=== PATIENT | male | born 1960 | race Caucasian/White ===

== ENCOUNTER 2021-08-27 10:32 | Outpatient (CLI) | payer OTHER, SELFPAY ==
[2021-08-27 10:54] LABS: Basophils Percent Auto 0.3 % (0.2-1.2); Eosinophils Absolute Auto 0.2 K/mm3 (0-0.3); Eosinophils Percent Auto 3.8 % (0-4.4); Hematocrit 49.8 % (42.0-52.0); Hemoglobin 16.1 g/dL (14.0-18.0); Immature Granulocyte Absolute 0.01 K/mm3 (0.00-0.031); Immature Granulocyte Percent A 0.2 % (0-0.5); Lymphocytes Absolute Auto 1.93 K/mm3 (0.9-3.2); Lymphocytes Percent Auto 33.3 % (18.3-44.2); Mean Corpuscular HGB Conc 32.3 g/dl (32-36); Mean Corpuscular Hemoglobin 30.3 pg (26-34); Mean Corpuscular Volume 93.6 fl (80-100); Mean Platelet Volume 9.1 fl (7.4-10.4); Monocytes Absolute Auto 0.7 K/mm3 (0.1-0.6); Monocytes Percent Auto 12.3 % (2.6-8.5); Neutrophils Absolute Auto 2.9 K/mm3 (1.3-6.7); Neutrophils Percent Auto 50.1 % (45.5-73.1); Platelet Count Result 201 k/mm3 (150-375); Red Blood Count 5.32 M/mm3 (4.6-6.20); Red Cell Distribution Width 13.9 % (11.5-14.5); White Blood Count 5.8 K/mm3 (4.5-10.0)
--- NOTE | 2021-08-27 10:55 | ECG_ITS ---
Measurements Intervals Vera Rate: 58 P: 66 GA: 213 QRS: 96 QRSD: 102 T: 40 QT: 376 QTc: 369 Interpretive Statements SINUS BRADYCARDIA WITH SINUS ARRHYTHMIA WITH FIRST DEGREE AV BLOCK RIGHT AXIS DEVIATION INCOMPLETE RIGHT BUNDLE BRANCH BLOCK ABNORMAL ECG Electronically Signed On 08-27-2021 11:35:30 CDT by Devin Castillo D.O.
[2021-08-27 11:05] LABS: Alanine Aminotransferase 32 U/L (6-50); Albumin Level 4.4 g/dL (3.5-5.1); Alkaline Phosphatase 69 U/L (38-126); Anion Gap 7 mmol/L (8-16); Aspartate Amino Transferase 44 U/L (17-59); Bilirubin,Total 0.9 mg/dL (0.2-1.3); Blood Urea Nitrogen 18 mg/dL (9-20); Calcium 8.8 mg/dL (8.4-10.2); Carbon Dioxide 27 mmol/L (22-30); Chloride 107 mmol/L (98-107); Estimated Glomerular Filt Rate > 60; Glucose 103 mg/dL (65-110); Potassium 4.8 mmol/L (3.4-5.0); Sodium 141 mmol/L (137-145)
== END 2021-08-27 10:33 | disposition home or self-care (01) ==
PROVIDERS: PCP Family Medicine; Visit Provider Surgery
DX: K40.90 Unilateral inguinal hernia, without obstruction or gangrene, not specified as recurrent (principal); I45.10 Unspecified right bundle-branch block; I44.0 Atrioventricular block, first degree
CPT/HCPCS: 36415; 80053; 85025; 93005

== ENCOUNTER 2021-09-06 12:59 | Outpatient (CLI) | payer OTHER, SELFPAY | END 2021-09-06 13:00 | disposition home or self-care (01) | LOC: ANHSURGERY 13:03 | PROVIDERS: PCP Family Medicine; Visit Provider Surgery | DX: K40.90 Unilateral inguinal hernia, without obstruction or gangrene, not specified as recurrent (principal) | CPT/HCPCS: 36415; 86850; 86900; 86901 ==

== ENCOUNTER 2021-09-09 01:22 | Day surgery (SDC) | payer OTHER, SELFPAY ==
[2021-09-05 12:42] VITALS: BMI 28.5
--- NOTE | 2021-09-05 12:53 | PC.NURSE ---
Report to the Outpatient Waiting Room, entrance under the green pavilion located off [facility], at time 6:00 on date 09/09/21. OR Time: 7:30. - You and your visitor will be asked a series of questions to screen for COVID 19 for your protection. - Only one visitor is allowed at this time. - The patient visitor is requested to leave or wait in car when not with patient. - A mask is required within the hospital. Patients may have clear liquids (water, carbonated beverages, clear teas, apple juice) until 3 hours prior to surgery (4:30) with a maximum of 20 ounces. - No food from midnight until time of surgery Take the following medications with a SIP of water the morning of surgery: NONE Medications to discontinue per physician: VITAMINS/SUPPLEMENTS Date to take last dose: 09/05/21 Please no make-up, nail maltese, hairspray, perfume, deodorant, or body powder the day of surgery. No jewelry (including any body piercings) or valuables the day of surgery, leave them at home. Please take a shower or bath the night before, or the morning of, surgery with an antibacterial soap. Wear comfortable, loose fitting clothing. HIBICLENS SHOWER - Jewelry must be removed prior to entering the operating room. Rings and piercings that are not removed may be cut off. - The hospital will not accept responsibility for valuables. - Please leave all valuables, including medications, at home the day of surgery. If you are going home after surgery, a licensed special events driver must drive you home. - NO public transportation without another adult. - We recommend that an adult stay with you for 24 hours following discharge. - We also recommend that you do not drive, make important decision, drink alcoholic beverages, or take any drugs that were not prescribed by your health care provider for at least 24 hours after your discharge time. Follow any additional instructions given to you from your surgeon. If you or anyone in your household have experienced Covid symptoms in the past week, please notify your surgeon or the nurse liaison at the phone number below for possible testing. Telephone instructions given to PT - RICKY CALVO and asked if any additional questions and then verbalized understanding. Patient advised to call surgeon office or pre surgery nurse liaison [phone] if any additional questions.
[2021-09-09] VITALS (13 sets, daily range): BP systolic 114–136; BP diastolic 78–87; PULSE 62–90; RESP 12–16; TEMP 36.4–36.8; O2SAT 96–100
[2021-09-09] MEDS: ACETAMINOPHEN 500 MG TABLET 1000 MG PO (06:35)
[2021-09-09] MEDS: LACTATED RINGERS 1,000 ML 30 ML IV CONT (06:50)
[2021-09-09] MEDS: KETOROLAC 15 MG/ML VIAL (*BKC) IV PUSH (06:51)
--- NOTE | 2021-09-09 06:56 | P.PNAN_ITS ---
Anes - Initial Pre Proc Eval Procedure: Operation Date: 09/09/21 07:30 Proposed Procedures p Laparoscopic Right Inguinal Hernia Repair with Mesh, Possible Open - Roger Finnegan MD Date/Time: 09/09/21 06:56 Surgeon: Roger Finnegan MD Pre Op Diagnosis: right inguinal hernia Patient Data Age: 61 Gender: M Height: 1.83 m Weight: 94.7 kg Allergies Allergy/AdvReac Type Severity Reaction Status Date / Time No Known Drug Allergies Allergy Unknown unknown Verified 09/09/21 06:23 Home Medications Medication Instructions Recorded Confirmed Type albuterol sulfate 90 mcg/actuation 1 inhalation inhalation Q4H PRN 04/07/19 09/05/21 Rx aerosol inhaler (ProAir HFA) shortness of breath or wheezing #8.5 grams bxrelmpi-yaspswdb-zzwkn acid 400 1 tablet PO DAILY 06/26/21 09/09/21 History mcg-vit K 20 mcg-lycop 300 mcg tablet (One-A-Day Men's Multivitamin) lansoprazole 15 mg capsule,delayed 15 mg PO WEEKLY 07/10/21 09/09/21 History release (Prevacid 24Hr) melatonin 10 mg capsule 10 mg PO QHS 07/10/21 09/09/21 History omega-3 fatty acids-fish oil 360 1 cap PO BID 07/10/21 09/09/21 History mg-1,200 mg capsule (Fish Oil) ezetimibe 10 mg tablet See Rx Instructions .Route 08/20/21 09/09/21 Rx .COMPLEX #90 tabs budesonide-formoterol HFA 160 2 puff inhalation HS 09/05/21 09/09/21 History mcg-4.5 mcg/actuation aerosol inhaler (Symbicort) Patient hx anesthesia problems: none Family hx anesthesia problems: none Results Review: All pre-operative results and documents have been reviewed as part of the pre- operative evaluation. [facility] Past Medical History Medical History Asthma Mixed hyperlipidemia Surgical History Surgical History H/O arthroscopy H/O colonoscopy History of esophagogastroduodenoscopy (EGD) Family History Family History Mother Diabetes mellitus Father Family history of malignant neoplasm, Onset Age: 51 Grandparent Family history of coronary artery disease Social History Social History Smoking status: Never smoker Second hand tobacco smoke exposure: No Alcohol intake: current Alcohol use details: VERY RARE Substance use: never Substance use type: does not use Living arrangements: with family 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 Informed Consent: The patient's anesthetic plan and its attendant risks and benefits were discussed with the patient/family/POA. Questions were solicited and answers provided to the satisfaction of the patient/family/POA.
--- NOTE | 2021-09-09 07:19 | WPDHPUPDATE1 ---
History and Physical Update Update Date/Time: 09/09/21 07:19 History and Physical has been reviewed, including an updated exam of the patient. There are NO changes in the patient's condition. Risks, benefits, and alternatives have been discussed and questions answered. Patient agrees to proceed with procedure.
[2021-09-09] MEDS: ceFAZolin 2 GM/D5W 50 ML 2 GM/50 ML BAG IVPB (07:25)
[2021-09-09] MEDS: LIDO 1%/EPINEPHRINE/PF 1:200,000 30 ML VIAL INFILTRATE (08:08)
--- NOTE | 2021-09-09 08:58 | W.PM.PROC2 ---
Procedure Note - Detailed Date of Procedure 09/09/21 Pre-op Diagnosis right inguinal hernia Post-op Diagnosis Other (Right direct inguinal hernia) Procedure Performed 1. 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 See office H and P for further information. Findings There was a fairly large right direct pseudo sac and direct inguinal hernia. No indirect inguinal hernia identified. Description of Procedure After appropriate marking of the operative site prior to surgery, the patient was taken to the operating room. After induction of adequate general endotracheal anesthesia by [place] staff, the patient was carefully prepped and draped in a sterile fashion. A timeout was performed confirming the procedure and site of surgery on the right. Following this, local anesthetic was infiltrated into the umbilical area and a vertical incision was made just below the umbilicus. I carefully dissected down to the the anterior rectus sheath on the right and then made a 1 cm vertical slit in the fascia just off the midline. The rectus muscle was retracted to right and then just in front of the posterior rectus sheath, a dissecting balloon was passed onto the pubic bone. After placing slight pressure on the left groin area, this was insufflated with 30 pumps, while watching with the 0 degree laparoscope. It appeared that I was in the proper plane. Following this, the dissecting balloon was removed and replaced by a Chávez cannula with a circular 20 cc conforming balloon. Following this, the 0 degree laparoscope was used to carefully place two 5mm [employer] slim trocars, just to the left of midline. One suprapubic and other one longterm between the umbilicus and the pubic bone. Tedious dissection then occurred in the preperitoneal space exposing the Porter's ligament, the cord structures, the muscular tissue anteriorly, and the retroperitoneum. This was then able to be dissected back and we could visualize the posterior peritoneum. I then dissected up to the level of the umbilicus and it was ready for mesh placement. After carefully confirming all sites and that the mesh would cover the direct space, I carefully rolled the Large Mid 3D Bard mesh and slid this through the 12 mm trocar at the umbilical level down into the preperitoneal space. This unfurled nicely and sat nicely against the right groin structures. It nicely covered all spaces and it went back nicely into the preperitoneal space along the anterior-superior iliac spine. I took a picture of it carefully, which showed that the mesh will cover the preperitoneal groin well, and had come down to the posterior border of the peritoneum. Once this was accomplished, I took the patient out of Trendelenburg position, rotated the patient back even, and then observed using a dissector through the higher 5 mm trocar to keep the mesh pushed down against the anterior and posterior abdominal wall retroperitoneally. The peritoneum was then allowed to fall on to the mesh and it held the mesh nicely in place. I then carefully removed each of the 5 mm trocars under direct vision and compressed the CO2 gas out of the preperitoneal space, deflating the 30 cc round balloon and removing the Junie cannula. I was happy with the way the peritoneum laid back on the mesh. I felt this will give the patient a good preperitoneal repair. Following this an O Vicryl figure of eight suture was used to close the anterior rectus sheath on the right side of the umbilical incision and then local anesthetic was infiltrated into each of the incisions. Each 5mm site was closed with 4-0 undyed Monocryl and a running subcuticular closure of 4-0 undyed Monocryl was used on the skin of umbilicus. Surgical glue was used for dressing. Following this, the patient was taken to the
[2021-09-09] MEDS: oxyCODONE HCL (*CRX) 5 MG TAB IR PO (09:52)
== END 2021-09-09 12:05 | disposition home or self-care (01) ==
PROVIDERS: PCP Family Medicine; Visit Provider Surgery
PROC: (CPT 49650; principal; 2021-09-09 07:30)
DX: K40.90 Unilateral inguinal hernia, without obstruction or gangrene, not specified as recurrent (principal); J45.909 Unspecified asthma, uncomplicated; E78.2 Mixed hyperlipidemia; Z79.51 Long term (current) use of inhaled steroids
CPT/HCPCS: 49650; A9270; C1781; J0330; J0690; J1100; J1170; J1885; J2250; J2370; J2704; J2710; J7030; J7120

== ENCOUNTER 2021-12-23 01:03 | Day surgery (SDC) | payer OTHER, SELFPAY ==
[2021-12-05 15:33] VITALS: BMI 28.8
[2021-12-23 11:30] VITALS: BMI 28.0
--- NOTE | 2021-12-23 11:31 | PM.IMHP ---
H&P: HPI History of Present Illness Date/Time: 12/23/21 11:31 Chief Complaint: History of colon polyp. Narrative: This is a 61-year-old white male patient presents for screening colonoscopy. Patient's current weight appetite and bowel movements are normal. Patient denies abdominal pain. he has had no bleeding patient has a prior history of adenomatous colon polyp 2016. Patient presents today for follow-up screening colonoscopy. Review of Systems Review of Systems: Review of systems noncontributory. [facility] Past Medical History Medical History Asthma Mixed hyperlipidemia Surgical History Surgical History H/O arthroscopy H/O colonoscopy H/O inguinal hernia repair Laparoscopic right inguinal hernia repair w/ mesh, possible open on 09/09/21 History of esophagogastroduodenoscopy (EGD) Family History Family History Mother Diabetes mellitus Father Family history of malignant neoplasm, Onset Age: 51 Grandparent Family history of coronary artery disease Social History Social History Smoking status: Never smoker Second hand tobacco smoke exposure: No Alcohol intake: current Alcohol use details: Rarely Substance use: never Substance use type: does not use Living arrangements: with family 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 Spiritual care concerns: No Meds Home Medications and Allergies Home Medications Medication Instructions Recorded Confirmed Type albuterol sulfate 90 mcg/actuation 1 inhalation inhalation Q4H PRN 04/07/19 12/23/21 Rx aerosol inhaler (ProAir HFA) shortness of breath or wheezing #8.5 grams qektrpzb-byspbnem-oxfjm acid 400 1 tablet PO DAILY 06/26/21 12/23/21 History mcg-vit K 20 mcg-lycop 300 mcg tablet (One-A-Day Men's Multivitamin) lansoprazole 15 mg capsule,delayed 15 mg PO WEEKLY 07/10/21 12/23/21 History release (Prevacid 24Hr) melatonin 10 mg capsule 10 mg PO QHS PRN Insomnia 07/10/21 12/23/21 History omega-3 fatty acids-fish oil 360 2 cap PO DAILY 07/10/21 12/23/21 History mg-1,200 mg capsule (Fish Oil) ezetimibe 10 mg tablet See Rx Instructions .Route 08/20/21 12/23/21 Rx .COMPLEX #90 tabs budesonide-formoterol HFA 160 1 puff inhalation HS 09/05/21 12/23/21 History mcg-4.5 mcg/actuation aerosol inhaler (Symbicort) Allergies Allergy/AdvReac Type Severity Reaction Status Date / Time No Known Drug Allergies Allergy Unknown unknown Verified 12/23/21 11:28 Exam Narrative: Physical exam reveals patient to be alert. Vital signs stable. HEENT exam is unremarkable. Patient is anicteric. Lungs are clear to auscultation and percussion. Heart is without murmur or extra sounds. Abdomen bowel sounds present soft nontender with no organomegaly. Digital external rectal exam is normal. Assessment and Plan Assessment and plan (1) History of colon polyps: Code(s): Z86.010 - Personal history of colonic polyps Status: Acute Assessment and Plan: Patient has a history of adenomatous colon polyp removed from the colon 2016. Plan is for surveillance colonoscopy now consider this at intervals in the future.
[2021-12-23 11:33] VITALS: BP 133/82; PULSE 84; RESP 18; TEMP 36.7; O2SAT 100
[2021-12-23] MEDS: LACTATED RINGERS 1,000 ML 150 ML IV CONT (11:44)
--- NOTE | 2021-12-23 11:47 | WPDANESEPPF ---
Anes - Initial Pre Proc Eval Procedure: Operation Date: 12/23/21 12:30 Proposed Procedures p Screening Colonoscopy - Brett Beard MD Date/Time: 12/23/21 11:47 Surgeon: Brtet Beard MD Pre Op Diagnosis: hx colon polyps, neoplasm screening Patient Data Age: 61 Gender: M Height: 1.83 m Weight: 93.6 kg Last Vital Signs Temp 98.0 F 12/23/21 11:33 Pulse 84 12/23/21 11:33 Resp 18 12/23/21 11:33 BP 133/82 12/23/21 11:33 Pulse Ox 100 12/23/21 11:33 O2 Del Method Room Air 12/23/21 11:33 Allergies Allergy/AdvReac Type Severity Reaction Status Date / Time No Known Drug Allergies Allergy Unknown unknown Verified 12/23/21 11:28 Home Medications Medication Instructions Recorded Confirmed Type albuterol sulfate 90 mcg/actuation 1 inhalation inhalation Q4H PRN 04/07/19 12/23/21 Rx aerosol inhaler (ProAir HFA) shortness of breath or wheezing #8.5 grams nvdqcyjd-wqplysaj-gsjzr acid 400 1 tablet PO DAILY 06/26/21 12/23/21 History mcg-vit K 20 mcg-lycop 300 mcg tablet (One-A-Day Men's Multivitamin) lansoprazole 15 mg capsule,delayed 15 mg PO WEEKLY 07/10/21 12/23/21 History release (Prevacid 24Hr) melatonin 10 mg capsule 10 mg PO QHS PRN Insomnia 07/10/21 12/23/21 History omega-3 fatty acids-fish oil 360 2 cap PO DAILY 07/10/21 12/23/21 History mg-1,200 mg capsule (Fish Oil) ezetimibe 10 mg tablet See Rx Instructions .Route 08/20/21 12/23/21 Rx .COMPLEX #90 tabs budesonide-formoterol HFA 160 1 puff inhalation HS 09/05/21 12/23/21 History mcg-4.5 mcg/actuation aerosol inhaler (Symbicort) Patient hx anesthesia problems: none Family hx anesthesia problems: none Results Review: All pre-operative results and documents have been reviewed as part of the pre-operative evaluation. [facility] Past Medical History Medical History Asthma Mixed hyperlipidemia Surgical History Surgical History H/O arthroscopy H/O colonoscopy H/O inguinal hernia repair Laparoscopic right inguinal hernia repair w/ mesh, possible open on 09/09/21 History of esophagogastroduodenoscopy (EGD) Family History Family History Mother Diabetes mellitus Father Family history of malignant neoplasm, Onset Age: 51 Grandparent Family history of coronary artery disease Social History Social History Smoking status: Never smoker Second hand tobacco smoke exposure: No Alcohol intake: current Alcohol use details: Rarely Substance use: never Substance use type: does not use Living arrangements: with family Additional occupation/education comments: [employer] Spiritual care concerns: No Anes - Eval Final PreProcedure Day of Procedure 12/23/21 11:47 Patient weight: normal Heart: regular rate and rhythm Lungs: clear to auscultation Airway: Mallampati scale class II Neurological: alert and oriented Last oral intake: >/= 8 hours ASA classification: II Emergent: no Anesthetic plan: proceed Anesthesia type and monitoring: general GIVS and standard monitoring Results Review: All pre-operative results and documents have been reviewed as part of the pre-operative evaluation. Informed Consent: The patient's anesthetic plan and its attendant risks and benefits were discussed with the patient/family/POA. Questions were solicited and answers provided to the satisfaction of the patient/family/POA.
[2021-12-23 12:52] VITALS: BP 95/47; PULSE 76; RESP 15; O2SAT 95
[2021-12-23 13:02] VITALS: BP 107/62; PULSE 74; RESP 20; O2SAT 98
[2021-12-23 13:12] VITALS: BP 116/67; PULSE 71; RESP 19; O2SAT 99
== END 2021-12-23 14:41 | disposition home or self-care (01) ==
PROVIDERS: PCP Emergency Medicine; Visit Provider Internal Medicine Gastroenterology
PROC: 0DJD8ZZ Inspection of Lower Intestinal Tract, Via Natural or Artificial Opening Endoscopic (ICD-10-PCS; CPT 45378; principal; 2021-12-23 12:30)
DX: Z12.11 Encounter for screening for malignant neoplasm of colon (principal); K64.8 Other hemorrhoids; Z86.010 Personal history of colon polyps; Z79.51 Long term (current) use of inhaled steroids; J45.909 Unspecified asthma, uncomplicated; E78.2 Mixed hyperlipidemia
CPT/HCPCS: 45378; J2704; J7120

== ENCOUNTER 2022-07-22 14:47 | Outpatient (CLI) | payer OTHER, SELFPAY ==
[2022-07-22 18:26] LABS: Kit Draw Collected
== END 2022-07-22 14:48 | disposition home or self-care (01) ==
LOC: ANHGOSHLAB 14:48
PROVIDERS: PCP Emergency Medicine; Visit Provider Nurse Practitioner Family
DX: R43.2 Parageusia (principal)
CPT/HCPCS: 36415

== ENCOUNTER 2024-08-23 17:33 | Outpatient (CLI) | payer OTHER, SELFPAY ==
--- NOTE | ~2024-08-23 | XR_ITS ---
EXAM: XR knee RT min 4V DATE: 08/23/2024 17:48 HISTORY: M25.561 - Pain in right knee . COMPARISON: None available. FINDINGS: Normal mineralization. No fracture or dislocation. No lytic or blastic lesion. Mild medial joint space narrowing. Mild tricompartmental osteophytosis. No erosion or periosteal change. Small-v olume joint fluid. Minimal vascular calcification. IMPRESSION: Mild tricompartmental right knee osteoarthritis. Small right knee joint effusion. Reviewed, dictated and finalized at location K. IMPRESSION: Mild tricompartmental right knee osteoarthritis. Small right knee j oint effusion.
== END 2024-08-23 17:34 | disposition home or self-care (01) ==
PROVIDERS: PCP Nurse Practitioner Family; Visit Provider Nurse Practitioner Family
DX: M17.11 Unilateral primary osteoarthritis, right knee (principal)
CPT/HCPCS: 73564

== ENCOUNTER 2024-11-14 06:46 | Emergency (ER) | payer OTHER, SELFPAY ==
--- NOTE | ~2024-11-14 | CT_ITS ---
EXAMINATION: CT abdomen pelvis wo con DATE: 11/14/2024 07:48 INDICATION: Left flank pain TECHNIQUE: Computed tomography (CT) of the abdomen and pelvis was performed without intravenous contr ast. The dose-length product was 796.54 mGy-cm. Automated exposure control and iterative reconstructi on technique were employed. COMPARISON: None. FINDINGS: Lung bases unremarkable. No significant pleural or pericardial effusion. Heart size normal. There is a 2 mm left UVJ stone with mild hydronephrosis. Liver, spleen, pancreas, adrenal glands and right kidney are unremarkable. Gallbladder is present. En larged prostate gland. Bladder is decompressed. Gallbladder is present. Small hiatal hernia. No free air or free fluid. Small fat-containing left inguinal hernia. There is dextroscoliosis. There is mode rate lumbar spondylosis. There are accessory splenules. IMPRESSION: 1. Left UVJ stone measuring 2 mm with mild hydronephrosis. 2: Enlarged prostate gland. Reviewed, dictated and finalized at location A.
[2024-11-14 07:15] VITALS: BP 149/88; PULSE 56; RESP 18; TEMP 36.4; O2SAT 100
[2024-11-14 07:35] LABS: Hematocrit 48.7 % (42.0-52.0); Hemoglobin 16.2 g/dL (14.0-18.0); Immature Granulocyte Percent A 0.2 % (0-0.5); Lymphocytes Absolute Auto 4.51 K/mm3 (0.9-3.2); Mean Corpuscular HGB Conc 33.3 g/dl (32-36); Mean Corpuscular Hemoglobin 30.6 pg (26-34); Mean Corpuscular Volume 92.1 fl (80-100); Nucleated Red Blood Cells Absolute Auto 0.000 K/mm3 (0.0-0.012); Nucleated Red Blood Cells Perc 0.0 % (0.0-0.2); Platelet Count Result 209 k/mm3 (150-375); Red Blood Count 5.29 M/mm3 (4.6-6.20); White Blood Count 8.7 K/mm3 (4.5-10.0)
[2024-11-14 07:42] LABS: Alanine Aminotransferase 34 U/L (6-50); Albumin Level 4.3 g/dL (3.5-5.1); Alkaline Phosphatase 80 U/L (38-126); Anion Gap 12 mmol/L (4-12); Aspartate Amino Transferase 40 U/L (17-59); Bilirubin,Total 1.2 mg/dL (0.2-1.3); Blood Urea Nitrogen 19 mg/dL (9-20); Calcium 8.9 mg/dL (8.4-10.2); Carbon Dioxide 19 mmol/L (22-30); Chloride 107 mmol/L (98-107); Estimated CRCL calculation 51 ml/min; Estimated Glomerular Filt Rate 47; Glucose 145 mg/dL (65-110); Lipase 151 U/L (23-300); Potassium 4.0 mmol/L (3.4-5.0); Sodium 138 mmol/L (137-145); Total Protein 7.2 g/dL (6.3-8.2)
[2024-11-14] MEDS: SODIUM CHLORIDE 0.9% IV 1,000 ML 999 ML IV CONT (07:48)
[2024-11-14] MEDS: MORPHINE SULFATE (*CRX) 4 MG/ML INJ IV PUSH ×2 (07:48→08:51)
[2024-11-14] MEDS: ONDANSETRON INJ 4 MG/2 ML VIAL IV PUSH (07:49)
--- NOTE | 2024-11-14 08:18 | ED.GENADULT ---
HPI - General Adult General Chief complaint: Abdominal Pain Stated complaint: LEFT FLANK PAIN Time Seen by Provider: 11/14/24 07:32 History of Present Illness HPI narrative: Patient is 64 old gentleman presents emergency department chief complaint of left flank pain. Patient reports pain began suddenly this morning reports he is unable to get comfortable reports that he has had some nausea the patient reports no specific localizing abdominal pain and does report that the pain feels as though it is coming around to the front of his left flank area. The patient reports no prior history of kidney stones but reports he is concerned that he may have a stone Related Data Home Medications ?Medication ?Instructions ?Recorded ?Confirmed ?Last Taken ?Type fkehcuqg-tabcopsf-rmmcy acid 400 1 tablet PO DAILY 06/26/21 07/14/24 09/08/21 History mcg-vit K 20 mcg-lycop 300 mcg tablet (One-A-Day Men's Multivitamin) lansoprazole 15 mg capsule,delayed 15 mg PO WEEKLY 07/10/21 07/14/24 09/08/21 History release (Prevacid 24Hr) omega-3 fatty acids-fish oil 360 2 cap PO DAILY 07/10/21 07/14/24 09/08/21 History mg-1,200 mg capsule (Fish Oil) magnesium oxide 400 mg PO DAILY 05/27/23 07/14/24 Unknown History Allergies Allergy/AdvReac Type Severity Reaction Status Date / Time No Known Drug Allergies Allergy Unknown unknown Verified 11/14/24 07:23 Review of Systems Review of Systems: A 10 system review of systems was completed on the patient and is negative except for what is stated in the HPI. Nursing and ancillary documentation was reviewed. 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 History of colon polyps Overweight (BMI 25.0-29.9) Fatigue Taste impairment Colon polyp Screening for prostate cancer Encounter for other specified surgical aftercare Asthma Mixed hyperlipidemia Surgical History Surgical History H/O inguinal hernia repair Laparoscopic right inguinal hernia repair w/ mesh, possible open on 09/09/21 History of esophagogastroduodenoscopy (EGD) H/O arthroscopy H/O colonoscopy Family History Family History Mother Diabetes mellitus Father Family history of malignant neoplasm, Onset Age: 51 Grandparent Family history of coronary artery disease Social History Social History Smoking status: Never smoker Second hand tobacco smoke exposure: No Alcohol intake: current Alcohol use details: Rarely Substance use: never Substance use type: does not use Do You Feel Safe in your Home?: Yes Lack of Transportation: No Lack of Food: Never True Current Housing: I Have Housing Concerned About Future Housing: No Difficulty Paying Gas/Electric Bills: No Difficulty Paying for Meds: No Currently Unemployed: No Education: Bachelor's Degree Difficulty w/ Childcare or Family Care: No Living arrangements: with family Occupation/Education: occupation Additional occupation/education comments: [employer] Spiritual care concerns: No Exam Narrative: GENERAL: Well-appearing, well-nourished, and in moderate acute pain distress. HEAD: Normocephalic, atraumatic. EYES: PERRLA and EOMI. ENT: Nares clear, no rhinorrhea or epistaxis. Mucous membranes moist. NECK: Supple. CHEST: Clear to auscultation. No respiratory distress. HEART: Regular rate and rhythm. No murmur heard. Normal peripheral pulses. ABDOMEN: Soft, nontender, nondistended, normal active bowel sounds. EXTREMITIES: Normal range of motion. No edema. SKIN: Warm, dry, no rash. NEURO: No focal deficits. Alert and oriented x3. PSYCH: Normal mood and affect. Course Vital Signs Vital signs: Vital Signs Temperature 36.4 C 11/14/24 07:15 Pulse Rate 56 L 11/14/24 07:15 Respiratory Rate 18 11/14/24 07:15 Blood Pressure 149/88 H 11/14/24 07:15 Pulse Oximetry 100 11/14/24 07:15 Oxygen Delivery Room Air 11/14/24 07:15 Temperature 36.4 C 11/14/24 07:15 Pulse Rate 69 11/14/24 08:52 Respiratory Rate 15 11/14/24 08:52 Blood Pressure 145/81 H 11/14/24 08:52 Pulse Oximetry 97 11/14/24 08:52 Oxygen Delivery Room Air 11/14/24 07:15 Medical Decision Making [facility] Narrative Medical decision making narrative: Differential diagnosis includes ureterolithiasis, pyelonephritis, intra-abdominal infection, diverticulitis, colitis, Laboratory studies were obtained on the patient showed a normal CBC CMP showed a creatinine of 1.5 CT scan showed a 2 mm stone at the UVJ on the left side Vital Signs Vital Signs: Vital Signs Temperature 36.4 C 11/14/24 07:15 Pulse Rate 56 L 11/14/24 07:15 Respiratory Rate 18 11/14/24 07:15 Blood Pressure 149/88 H 11/14/24 07:15 Pulse Oximetry 100 11/14/24 07:15 Oxygen Delivery Room Air 11/14/24 07:15 Temperature 36.4 C 11/14/24 07:15 Pulse Rate 69 11/14/24 08:52 Respiratory Rate 15 11/14/24 08:52 Blood Pressure 145/81 H 11/14/24 08:52 Pulse Oximetry 97 11/14/24 08:52 Oxygen Delivery Room Air 11/14/24 07:15 Lab Data 11/14/24 07:21 11/14/24 07:21 Labs: Lab Results 11/14/24 11/14/24 Range/Units 07:21 08:20 WBC 8.7 (4.5-10.0) K/mm3 RBC 5.29 (4.6-6.20) M/mm3 Hgb 16.2 (14.0-18.0) g/dL Hct 48.7 (42.0-52.0) % MCV 92.1 (80-100) fl MCH 30.6 (26-34) pg MCHC 33.3 (32-36) g/dl RDW 14.2 (11.5-14.5) % Plt Count 209 (150-375) k/mm3 MPV 9.2 (7.4-10.4) fl Immature Gran % (Auto) 0.2 (0-0.5) % Neut % (Auto) 32.6 L (45.5-73.1) % Lymph % (Auto) 52.0 H (18.3-44.2) % Brown % (Auto) 11.1 H (2.6-8.5) % Eos % (Auto) 3.8 (0-4.4) % Baso % (Auto) 0.3 (0.2-1.2) % Lymph # (Auto) 4.51 H (0.9-3.2) K/mm3 Brown # (Auto) 1.0 H (0.1-0.6) K/mm3 Eos # (Auto) 0.3 (0-0.3) K/mm3 Baso # (Auto) 0.0 (0.0-0.1) K/mm3 Abs Immat Gran (auto) 0.02 (0.00-0.031) K/mm3 Absolute Neuts (auto) 2.8 (1.3-6.7) K/mm3 Absolute Nucleated RBC 0.000 (0.0-0.012) K/mm3 Nucleated RBC % 0.0 (0.0-0.2) % Sodium 138 (137-145) mmol/L Potassium 4.0 (3.4-5.0) mmol/L Chloride 107 (98-107) mmol/L Carbon Dioxide 19 L (22-30) mmol/L Anion Gap 12 (4-12) mmol/L BUN 19 (9-20) mg/dL Creatinine 1.50 H (0.7-1.3) mg/dL Estim Creat Clear Calc 51 ml/min Estimated GFR 47 L (59 - ) Glucose 145 H (65-110) mg/dL Calcium 8.9 (8.4-10.2) mg/dL Total Bilirubin 1.2 (0.2-1.3) mg/dL AST 40 (17-59) U/L ALT 34 (6-50) U/L Alkaline Phosphatase 80 (38-126) U/L Total Protein 7.2 (6.3-8.2) g/dL Albumin 4.3 (3.5-5.1) g/dL Lipase 151 (23-300) U/L Urine Color Yellow (Yellow) Urine Appearance Clear (Clear) Urine pH 7.5 (5.0-9.0) Ur Specific [place] 1.019 (1.001-1.035) Urine Protein Trace (Negative) mg/dL Urine Glucose (UA) Negative (Negative) mg/dL Urine Ketones 1+ H (Negative) mg/dL Ur Blood (Man) 3+ H (Negative) Urine Nitrate Negative (Negative) Urine Bilirubin Negative (Negative) Urine Urobilinogen 0.2 (<2.0) mg/dL Leukocyte Esterase Rfl Trace H (Negative) RASHI/UL Urine RBC >100 H (0-2) /hpf Urine WBC 0-5 (0-3) /hpf Ur Squamous Epith Cells None seen (Few) /hpf Urine Bacteria None seen /hpf Urine Casts 0-2 Discharge Plan Discharge Clinical Impression: Ureterolithiasis Patient Disposition: Home Condition: Stable Instructions: Antibiotic Form, Kidney Stones (ED), How to Strain Your Urine (ED), Flank Pain (ED), Ureteral Stones (ED) Patient Language: [place] Prescriptions: New ondansetron 4 mg tablet,disintegrating 4 mg PO Q8H PRN (Reason: nausea and vomiting) Qty: 10 0RF tamsulosin [Flomax] 0.4 mg capsule 0.4 mg PO DAILY Qty: 10 0RF hydrocodone-acetaminophen 5-325 mg tablet 1 tablet PO Q6H PRN (Reason: pain) 3 Days Qty: 12 0RF No Action albuterol sulfate [ProAir HFA] 90 mcg/actuation HFA aerosol inhaler 1 inh INHALATION Q4H PRN (Reason: shortness of breath or wheezing) Qty: 8.5 4RF One-A-Day Men's Multivitamin 400-20-300 mcg tablet 1 tablet PO DAILY lansoprazole [Prevacid 24Hr] 15 mg capsule,delayed release(DR/EC) 15 mg PO WEEKLY omega-3 fatty acids-fish oil [Fish Oil] 360-1,200 mg capsule 2 cap PO DAILY magnesium oxide 400 mg magnesium tablet 400 mg PO DAILY budesonide-formoterol 160-4.5 mcg/actuation HFA aerosol inhaler 2 puff inhalation BID Qty: 10.2 3RF Vitron-C 65 mg iron- 125 mg tablet,delayed release (DR/EC) 1 tablet PO DAILY Qty: 90 0RF meloxicam 15 mg tablet 15 mg PO DAILY Qty: 30 0RF Follow-up/Referrals: Yuliya Squires APRN [Primary Care Provider] - Azam Lopez MD [Physician] - Time of Disposition: 09:57
[2024-11-14 08:31] LABS: Add Urine Microscopic? YES; Appearance Urine Clear (Clear); Glucose Urine UA Negative (Negative); Leukocyte Esterase Ur Trace LEU/UL (Negative); Nitrate Urine Negative (Negative); Non Pathogenic Casts 0-2; Specific Grav Ur 1.019 (1.001-1.035)
[2024-11-14] MEDS: TAMSULOSIN HCL 0.4 MG CAPSULE PO (08:51)
[2024-11-14] MEDS: KETOROLAC 15 MG/ML VIAL (*BKC) IV PUSH (08:51)
[2024-11-14 08:52] VITALS: BP 145/81; PULSE 69; RESP 15; O2SAT 97
== END 2024-11-14 10:19 | disposition home or self-care (01) ==
PROVIDERS: Student in an Organized Health Care Education/Training Program; Emergency Provider Emergency Medicine; PCP Nurse Practitioner Family
DX: N13.2 Hydronephrosis with renal and ureteral calculous obstruction (principal); J45.909 Unspecified asthma, uncomplicated; E78.2 Mixed hyperlipidemia; Z86.0100 Personal history of colon polyps, unspecified; N40.0 Benign prostatic hyperplasia without lower urinary tract symptoms
CPT/HCPCS: 36415; 74176; 80053; 81001; 83690; 85025; 96361; 96374; 96375; 96376; 99284; A9270; J1885; J2270; J2405; J7030